=== PATIENT | male | born 1950 | race Caucasian/White ===

== ENCOUNTER → 2018-03-24 | Outpatient (CLI) | payer MEDICARE ==
[~2018-03-24] MED LIST: ASCO-191 PO; ASP325 PO; ASPI81TA94 PO; ATOR40TA24 PO; ATOV1TAB PO; ATR80PT PO; CHOL400T29 PO; CIPR-345 PO; CLO75 PO; CLOP75TA PO; DOC100 PO; FLU45SYR17 IM; HUMALOG SC; INSU100V24 SQ; LANI SQ; LANI SUBQ; LISI-362 PO; LISI2.5T60 PO; LOR7.5/325 PO; LUTE20TA PO; METF-420 PO; METF-421 PO; METO-233 PO; METXL50 PO; NO ROUTINE MEDS; PER PO; PNEU0.5D3 IM; SILV20CR2 TP; SULF-170 PO; VITA1CAP46 PO; [UNRECOGNIZED DRUG - CODE] MC; [UNRECOGNIZED DRUG - OTHER] PO
== END ==
LOC: LAB 14:34
PROVIDERS: ATTEND Nurse Practitioner Family
DX: Z12.5 Encounter for screening for malignant neoplasm of prostate (principal); R94.6 Abnormal results of thyroid function studies
CPT/HCPCS: 36415; 84439; 84443; 84480; G0103; 84153

== ENCOUNTER → 2018-05-04 | Outpatient (REF) | payer MEDICARE ==
[~2018-05-04] MED LIST changes: +GABA-549 PO; +LIDO700A19 TOP; -METF-421 PO; +METF-452 PO
[2018-05-04 12:38] LABS: PLATELET COUNT, AUTOMATED 238 K/uL (150-450)
== END ==
LOC: ZZSTITCHES 12:19
PROVIDERS: ATTEND Physician Assistant
DX: R10.10 Upper abdominal pain, unspecified (principal)
CPT/HCPCS: 82040; 82247; 82310; 82374; 82435; 82565; 82947; 84075; 84132; 84155; 84295; 84450; 84460; 84520; 85025

== ENCOUNTER → 2018-06-12 | Outpatient (CLI) | payer MEDICARE | LOC: LAB 16:27 | PROVIDERS: ATTEND Nurse Practitioner Family | DX: R79.89 Other specified abnormal findings of blood chemistry (principal) | CPT/HCPCS: 36415; 84439; 84443; 84480 ==